=== PATIENT | female | born 1985 | race Caucasian/White ===

== ENCOUNTER 2017-01-03 08:49 | Emergency (ER) | payer SELFPAY ==
[2017-01-03 08:54] VITALS: O2SAT 100
[2017-01-03 09:35] LABS: RBC URINE 4 /hpf (0-3); URINE BACTERIA OCC (<OCC); URINE BILIRUBIN NEGATIVE (NEGATIVE); URINE BLOOD NEGATIVE (NEGATIVE); URINE COLOR Yellow (YELLOW); URINE GLUCOSE (UA) NORMAL (Normal); URINE KETONE NEGATIVE (NEGATIVE); URINE LEUKOCYTE ESTERASE 1+ Leu/uL (Negative); URINE PROTEIN NEGATIVE (NEGATIVE); URINE UROBILINOGEN NORMAL mg/dL (0.2-1.0); WBC URINE 13 /hpf (0-5)
[2017-01-03 10:12] VITALS: BP 109/69; PULSE 77; RESP 17; TEMP 97.7
--- NOTE | 2017-01-03 10:12 | C.PDOC ---
History Of Present Illness 31 y/o female presents to the ED with complains of vaginal itching, irritation and discharge since yesterday. Pt denies dysuria/hematuria, vaginal bleeding, fever, or abdominal pain. Pt denies hx of STDs or concern for current STDs. Time Seen by Provider: 01/03/17 08:59 Chief Complaint (Nursing): Female Genitourinary History Per: Patient History/Exam Limitations: no limitations Onset/Duration Of Symptoms: Hrs Current Symptoms Are (Timing): Still Present Severity: Mild Associated Symptoms: denies: Fever, Urinary Symptoms Alleviating Factors: None Abnormal Vaginal Bleeding: No Past Medical History Reviewed: Historical Data, Nursing Documentation, Vital Signs Vital Signs: Last Vital Signs Temp 97.7 F 01/03/17 10:11 Pulse 77 01/03/17 10:11 Resp 17 01/03/17 10:11 BP 109/69 01/03/17 10:11 Pulse Ox 100 01/03/17 10:51 - Medical History PMH: No Chronic Diseases Family History: States: No Known Family Hx - Social History Hx Alcohol Use: No Hx Substance Use: No - Immunization History Hx Tetanus Toxoid Vaccination: No Hx Influenza Vaccination: No Hx Pneumococcal Vaccination: No Review Of Systems Except As Marked, All Systems Reviewed And Found Negative. Constitutional: Negative for: Fever, Chills Cardiovascular: Negative for: Chest Pain Respiratory: Negative for: Shortness of Breath Gastrointestinal: Negative for: Abdominal Pain Genitourinary: Positive for: Vaginal Discharge, Other (vaginal itching and irritation). Negative for: Dysuria, Hematuria, Vaginal Bleeding Physical Exam - Physical Exam Appears: Non-toxic, No Acute Distress Skin: Warm, Dry Cardiovascular: Rhythm Regular Respiratory: Normal Breath Sounds, No Rales, No Rhonchi, No Wheezing Gastrointestinal/Abdominal: Normal Exam, Bowel Sounds, Soft, No Tenderness Pelvic: No Normal External Exam (labia appear irritated & mildly erythematous), Normal Bimanual Exam, No Vaginal Bleeding, Vaginal Discharge (small amount thick white cottage cheese-like discharge), No Cervical Motion Tenderness, No Adnexal Tenderness, Other (no lesions) Extremity: Bilateral: Atraumatic Neurological/Psych: Oriented x3 ED Course And Treatment O2 Sat by Pulse Oximetry: 100 (on room air) Pulse Ox Interpretation: Normal Progress Note: UA, Upreg and GC swab ordered. Upreg (-). UA shows +1 leuk and some wbcs, however patient denies urinary symptoms. Patient given 1 dose PO Diflucan in ED, as well as Rx for same to be used in 72 hours if symptoms persist. She was instructed to follow up with substance abuse counselor within 1 week, and understands she should return to ED if symptoms worsen. Disposition Counseled Patient/Family Regarding: Studies Performed, Diagnosis, Need For Followup, Rx Given - Disposition Referrals: [facility] [Outside] Disposition: HOME/ ROUTINE Disposition Time: 10:10 Condition: STABLE Additional Instructions: SEGUIMIENTO CON GRIGGS DOCTOR / CLNICA EN 1-2 TORRES USO DEL MEDICAMENTO EN [address]OR[address] SI LOS SNTOMAS PERSISTAN DEVUELVA A LA POLO DE EMERGENCIA SI LOS SNTOMAS EMPEORARAN Prescriptions: Fluconazole [Diflucan] 150 mg PO ONCE #1 tab Instructions: Vulvovaginal Candidiasis (ED) Print Language: YAKUT - POA Present On Arrival: None - Clinical Impression Clinical Impression: Noy vaginitis - Scribe Statement The provider has reviewed the documentation as recorded by the Kurt Cervantes Provider Attestation: All medical record entries made by the Kurt were at my direction and personally dictated by me. I have reviewed the chart and agree that the record accurately reflects my personal performance of the history, physical exam, medical decision making, and the department course for this patient. I have also personally directed, reviewed, and agree with the discharge instructions and disposition.
== END 2017-01-03 10:17 | disposition home or self-care (01) ==
LOC: C.ER 08:49
DX: B37.3 Candidiasis of vulva and vagina (principal)

== ENCOUNTER 2018-10-14 09:33 | Outpatient (CLI) | payer SELFPAY | END 2018-10-14 09:34 | disposition home or self-care (01) | LOC: C.LAB 09:33 | DX: N92.6 Irregular menstruation, unspecified (principal) ==

== ENCOUNTER 2018-10-21 10:12 | Outpatient (CLI) | payer OTHER, SELFPAY | END 2018-10-21 10:13 | disposition home or self-care (01) | LOC: C.USIC 10:12 | DX: N92.6 Irregular menstruation, unspecified (principal) ==

== ENCOUNTER 2018-11-02 09:09 | Outpatient (CLI) | payer SELFPAY | END 2018-11-02 09:10 | disposition home or self-care (01) | LOC: C.LAB 09:09 | DX: O09.32 Supervision of pregnancy with insufficient antenatal care, second trimester (principal) ==

== ENCOUNTER 2018-11-03 10:10 | Outpatient (CLI) | payer SELFPAY | END 2018-11-03 10:11 | disposition home or self-care (01) | LOC: C.USIC 10:10 ==